=== PATIENT | male | born 1955 | race Caucasian/White ===

== ENCOUNTER 2016-12-29 08:21 | Day surgery (SDC) | payer BC, OTHER ==
--- NOTE | 2016-12-21 14:53 | HISTORY AND PHYSICAL E ---
History and Physical NAME: JOSE FRANCISCO MULLINS : 1955 AGE: 61Y ADMITTED: 12/29/2016 ROOM: CHIEF COMPLAINT: 1. Patient presented regarding colon exam. 2. History of polyps. HISTORY: Reviewing of records, and patient known to me since 2001. I saw him for severe reflux. He did have small esophageal ulcer, reflux, and duodenitis. Referred to us by [facility]. The patient had upper scope in 2001 for reflux. The patient did have colonoscopy in 2007. He did have 3 mm polyp, benign, hyperplastic, in 2007. The patient did have descending colon rectal polyps, benign polyps. The patient did have another colonoscopy in 2014, showing polyps. The patient presented at this time regarding a followup colonoscopy. He did have a 2 mm polyp of the transverse colon, prominent ileocecal valve. Patient referred to us by [facility], [place]. The patient does use inhaler for bronchospasms. The patient presented from [place], [place], [facility]. Referred . PLAN: Colon exam. DICTATING PHYSICIAN: SIMÓN MANLEY M.D. [id number] PHY#: [id number] ID: [id number] JOB#: [id number] ACCT: [id number] cc:SIMÓN MANLEY M.D. >
[~2016-12-29 08:21] MED LIST: EPINEPHRINE INJ 1 MG/10 ML DISP.SYRIN ONE; FENTANYL CITRATE INJ/PF 100 MCG/2 ML AMPUL ONE; FLUMAZENIL INJ 0.5 MG/5 ML VIAL IV ONE; GLUCAGON,HUMAN RECOMB 1 MG INJ ONE; GLYCOPYRROLATE INJ 0.4 MG/2 ML VIAL ONE; LIDOCAINE 2% JELLY 30 ML TUBE ONE; MIDAZOLAM 2 MG/2 ML INJ ONE; NALOXONE HCL INJ/PF 0.4 MG/1 ML SDV ONE; ONDANSETRON HCL INJ/PF 4 MG/2 ML SDV ONE
[2016-12-29 10:11] VITALS: BP 100/62
[2016-12-29 10:16] LABS: ABSOLUTE EOSINOPHILS # (AUTO) 0.1 10^3/uL (0.0-0.6); ABSOLUTE LYMPHOCYTES (AUTO) 2.1 10^3/uL (0.5-4.7); ABSOLUTE MONOCYTES (AUTO) 0.6 10^3/uL (0.1-1.4); ABSOLUTE NEUT (AUTO) 6.4 10^3/uL (1.7-8.2); BASOPHILS % (AUTO) 0.5 % (0-2); EOSINOPHILS % (AUTO) 1.4 % (0-6); HEMATOCRIT 43.1 % (37.9-51.0); HEMOGLOBIN 14.8 g/dL (13.5-17.0); HGB HCT DIFFERENCE 1.3; LYMPHOCYTES % (AUTO) 22.5 % (13-45); MEAN CORPUSCULAR HEMOGLOBIN 32.9 pg (27.0-33.4); MEAN CORPUSCULAR HGB CONC 34.3 g/dL (32.0-36.0); MEAN CORPUSCULAR VOLUME 96 fl (80-97); MONOCYTES % (AUTO) 6.2 % (3-13); RED BLOOD COUNT 4.49 10^6/uL (4.35-5.55); RED CELL DISTRIBUTION WIDTH 14.5 % (11.5-14.0); SEGMENTED NEUTROPHILS % (AUTO) 69.4 % (42-78); WHITE BLOOD COUNT 9.3 10^3/uL (4.0-10.5)
--- NOTE | 2016-12-29 12:16 | DISCHARGE SUMMARY E ---
Discharge Summary NAME: JOSE FRANCISCO MULLINS : 1955 AGE: 61Y ADMITTED: 12/29/2016 DISCHARGED: 12/29/2016 PROCEDURE: Colonoscopy, biopsy. HISTORY: The patient is a 61-year-old male who underwent colon screening today showing no evidence of malignancy, benign-looking polyps in the rectum. The prep was okay but not optimal. Moderate amount of full liquid stool lavaged; flushing was used. CONCLUSIONS: Colonoscopy in 2007 shows hyperplastic polyps. Today's colonoscopy is showing polyps in the rectosigmoid area, benign looking, biopsy obtained. DISCHARGE PLAN: 1. Soft, low-residue diet for 2 days. 2. Hold aspirin and nonsteroidals for 3 days. 3. Awaiting biopsy results. 4. Baseline CBC. 5. Continue the rest of his medications, which are Tylenol for pain. 6. Otherwise, avoid exertion and heavy lifting for a few days. DICTATING PHYSICIAN: SIMÓN MANLEY M.D. [id number] Y#: [id number] ID: [id number] JOB#: [id number] ACCT: [id number] cc:SIMÓN MANLEY M.D. >
--- NOTE | 2016-12-29 12:18 | OPERATIVE REPORT E ---
Operative Report NAME: JOSE FRANCISCO MULLINS : 1955 AGE: 61Y DATE OF SURGERY: 12/29/2016 ROOM: PREOPERATIVE DIAGNOSIS: Colon screening. POSTOPERATIVE DIAGNOSIS: Diminutive rectal polyps. PROCEDURE: Colonoscopy. SURGEON: SIMÓN MANLEY M.D. ANESTHESIA: Versed 2 mg and Fentanyl 100 mcg. TISSUE REMOVED OR ALTERED: Biopsy of rectal polyps, benign-looking polyps. PROCEDURE: Rectal exam shows diminutive polyps, biopsy obtained. Some of the polyps are close to the anal verge. Two to 3 biopsies obtained from 2-3 polyps. The polyps were 1-3 mm in size, benign. Sigmoid and descending colon normal. Transverse colon normal. Large amount of liquidy stool. Ascending colon liquid stool the patient. Cecum normal. Scope withdrawn cecum, ascending, transverse, descending, sigmoid all the way to the rectum. CONCLUSIONS: Diminutive, benign-looking rectal polyps. PLAN: Awaiting biopsy. Consideration for follow-up colonoscopy after 3 years. DICTATING PHYSICIAN: SIMÓN MANLEY M.D. [id number] Y#: [id number] ID: [id number] JOB#: [id number] ACCT: [id number] cc:SIMÓN MANLEY M.D. [facility] >
== END 2016-12-29 10:15 | disposition home or self-care (01) ==
LOC: END 08:21
PROVIDERS: ATTEND Specialist
PROC: 0DBP8ZX Excision of Rectum, Via Natural or Artificial Opening Endoscopic, Diagnostic (ICD-10-PCS; principal; 2016-12-29 09:00)
DX: Z12.11 Encounter for screening for malignant neoplasm of colon (principal); K62.1 Rectal polyp; K21.9 Gastro-esophageal reflux disease without esophagitis; J98.01 Acute bronchospasm; Z79.51 Long term (current) use of inhaled steroids
CPT/HCPCS: 45380; 36415; 85025; 88305 ×2; J2250; J3010; J1610; J2405; J0171; J2310; J3490